=== PATIENT | female | born 1965 | race Caucasian/White ===

== ENCOUNTER → 2021-04-11 | Day surgery (SDC) | payer OTHER ==
[2021-04-09 08:11] VITALS: BMI 24.3
[~2021-04-11] MED LIST: EPINEPHrine/PF 1 MG/1 ML (1:1,000) AMPULE ONE; GENTAMICIN SO4 80 MG/2 ML VIAL ONE; HYDROmorphone HCL/PF 1 MG/ML VIAL ONE; LIDOCAINE 1%/EPI 1:100000 (20 ML MULTI DOSE VIAL) ONE; LIDOCAINE 1%/EPI 1:100000 (50 ML MULTI DOSE VIAL) INF ONE; LIDOCAINE HCL 1%, 10 MG/ML (20ML VIAL) ONE; MIDAZOLAM HCL 2 MG/2 ML SINGLE DOSE VIAL ONE; PROMETHAZINE HCL 25 MG/1 ML VIAL IVPUSH PRN; PROPOFOL 20 ML ONE; SUCCINYLCHOLINE CHLORIDE 200 MG/10 ML SYRINGE ONE; ceFAZolin SODIUM 1 GM VIAL ONE; oxyCODONE HCL 5 MG TABLET ONE; oxyCODONE HCL 5 MG TABLET PO ONE; oxyCODONE HCL 5 MG TABLET PO PRN
[2021-04-11 11:23] VITALS: TEMP 97.8
[2021-04-11 13:44] VITALS: BP 106/64; PULSE 68
== END | disposition home or self-care (01) ==
LOC: FASU 06:20
PROVIDERS: ATTEND Plastic Surgery
PROC: 0HNV0ZZ Release Bilateral Breast, Open Approach (ICD-10-PCS; principal; 2021-04-11 08:30)
DX: M95.4 Acquired deformity of chest and rib (principal); Z90.13 Acquired absence of bilateral breasts and nipples; Z85.3 Personal history of malignant neoplasm of breast; N65.1 Disproportion of reconstructed breast; T85.42XA Displacement of breast prosthesis and implant, initial encounter; T85.41XA Breakdown (mechanical) of breast prosthesis and implant, initial encounter; T85.43XA Leakage of breast prosthesis and implant, initial encounter; Y82.8 Other medical devices associated with adverse incidents; Y83.8 Other surgical procedures as the cause of abnormal reaction of the patient, or of later complication, without mention of misadventure at the time of the procedure; Y92.9 Unspecified place or not applicable
CPT/HCPCS: 19342; 19380; L8600; 88300-TC; 94760